=== PATIENT | male | born 1995 ===

== ENCOUNTER 2017-06-02 08:33 | Emergency (ER) | payer OTHER ==
[~2017-06-02] VITALS: Ht 175.3 cm; Wt 95.3 kg
[2017-06-02] MEDS ORDERED: OSEL75CA PO (11:12)
[2017-06-02] MEDS ORDERED: TUSSI PRES-B L120 M1 PO (11:12)
== END 2017-06-02 13:09 | disposition home or self-care (01) ==
LOC: ER 08:33
DX: K52.9 Noninfective gastroenteritis and colitis, unspecified (principal)